=== PATIENT | male | born 1970 | race Caucasian/White ===

== ENCOUNTER → 2024-11-19 | Outpatient (CLI) | payer SELFPAY ==
[2024-11-19 07:09] LABS: Hematocrit 42.9 % (40-54); Hemoglobin 15.4 g/dL (13.0-16.5); Mean Corp Hgb Conc 35.9 g/dL (32-36); Mean Corpuscular Hgb 32.7 pg (27.0-32.0); Mean Corpuscular Volume 91.1 fL (80-94); Mean Platelet Vol. 10.2 fl (6.2-12.0); Platelet Count 238 K/mm3 (150-450); RBC Distribution Width CV 11.5 % (11.6-14.6); RBC Distribution Width SD 38.6 fl (35.1-43.9); Red Blood Count 4.71 M/mm3 (4.6-6.2); White Blood Count 9.6 K/mm3 (4.4-11.0)
[2024-11-19 07:39] LABS: Cholesterol 211 mg/dL (<=200); High Density Lipoprotein 40 mg/dL; Low Density Lipoprotein Calc. 123 mg/dL; Magnesium 1.9 mg/dL (1.5-2.2); Triglycerides 240 mg/dL; Very Low Density Lipoprotein 48 mg/dL (5-40); cholesterol:hdl ratio screen 5.33
[2024-11-19 07:52] LABS: ALB/GLOB Ratio 1.3 RATIO (0.9-2.4); AST(SGOT) 24 U/L (<=37); Alanine Aminotransfer ALT/SGPT 23 U/L (<=46); Alkaline Phosphatase 55 U/L (40-129); Anion Gap 12 (5-15); BUN 19 mg/dL (4-19); BUN/Creat Ratio 21.3 RATIO (10-20); Calcium,Total 9.2 mg/dL (7.6-11.0); Carbon Dioxide 23.7 mmol/L (21.0-32.0); Chloride 100 mmol/L (98-108); Creatinine, Serum 0.87 mg/dL (0.70-1.20); EST Glomerular Filtration Rate 102 (>60); Globulin 3.1 g/dL (2.2-4.2); Glucose 289 mg/dL (70-99); Potassium 4.4 mmol/L (3.3-5.1); Protein, Total 7.1 g/dL (5.9-8.4); Sodium Level 135 mmol/L (133-145); Total Bilirubin 1.34 mg/dL (0.00-1.30)
== END | disposition home or self-care (01) ==
PROVIDERS: PCP Physician Assistant; Referring Provider Internal Medicine Cardiovascular Disease; Visit Provider Internal Medicine Cardiovascular Disease
DX: E11.65 Type 2 diabetes mellitus with hyperglycemia (principal); I10 Essential (primary) hypertension; R06.02 Shortness of breath; R07.9 Chest pain, unspecified; I49.3 Ventricular premature depolarization
CPT/HCPCS: 36415; 80053; 80061; 83735; 84443; 85027

== ENCOUNTER → 2025-01-04 | Outpatient (CLI) | payer SELFPAY ==
--- NOTE | 2025-01-04 12:59 | CT_ITS ---
PROCEDURE: LIMITED CHEST CT CARDIAC ONLY REASON FOR EXAM: CHEST PAIN TECHNIQUE: Supine chest CT without contrast,. One or more dose reduction techniques were used (e.g., Automated exposure control, adjustment of the mA and/or kV according to patient size, use of iterative reconstruction technique). COMPARISON: None FINDINGS: Hardware: None Lymph nodes: Small benign-appearing mediastinal lymph nodes. Calcified right precarinal and right hilar lymph nodes. Heart and Vasculature: Normal heart size. No pericardial effusion. Coronary Artery Calcifications: Present Lungs and Airways: Unremarkable Pleura: Unremarkable Upper Abdomen: Unremarkable Bones: Unremarkable CT/Limited Chest CT Cardiac Only IMPRESSION: Coronary artery calcification (CAC) is is present Reading Location: [id number]
[2025-01-04 13:08] VITALS: PULSE 76; RESP 16; O2SAT 97; BMI 35.5
[2025-01-04 13:34] VITALS: PULSE 73
[2025-01-04 13:34] LABS: CREATININE FINGERSTICK < 1.0 mg/dL (0.70-1.30); EGFR FINGERSTICK > 60.0000 mL/min (>60)
[2025-01-04] MEDS: Nitroglycerin SL (ED/IMG/CATH) 0.4 MG TABLET SL (13:34)
[2025-01-04 13:40] VITALS: BP 140/65; PULSE 78; RESP 18; O2SAT 96
--- NOTE | 2025-01-04 19:01 | CCTA_ITS ---
CCTA w/Cont Coronary Arteries Date of Study:: 01/04/25 Chest pain Coronary Calcium Scoring: High-resolution Computed Tomographic imaging of the chest was performed on [01/04/2025], with particular attention paid to the coronary arteries. Intravenous contrast agent was administered per protocol and images reconstructed and displayed. There was motion artifact present with suboptimal images obtained LEFT MAIN CORONARY ARTERY: This arises from the left coronary cusp and bifurcates to left anterior descending artery and left circumflex artery no high-grade stenosis is present [] LEFT ANTERIOR DESCENDING CORONARY ARTERY: Medium size vessel with a mild to moderate amount of noncalcified atherosclerotic plaque noted in the midsegment and distal mild diffuse disease present [] LEFT CIRCUMFLEX CORONARY ARTERY: Nondominant left circumflex artery with mild soft plaque noted with no high-grade stenosis [] RIGHT CORONARY ARTERY: Proximal dominant large vessel with proximal c alcification midsection motion artifact and distal mild calcification present. No high-grade obvious stenosis is noted [] THORACIC AORTA: [] PULMONARY ARTERY: [] LEFT ATRIUM/APPENDAGE: [] MITRAL VALVE: [] AORTIC VALVE: [] LEFT VENTRICLE: [] CORONARY CALCIUM SCORE: 237 [] Findings Coronary Artery Left Main (LM): 8.19 Left Anterior Descending (LAD): 0 Left Circumflex (LCX): 0 Right Coronary Artery (RCA): 229 Total Agatston Score: 237.19 Percentile Rankinth and 90th percentile Calcium Scoring Interpretation: Different methods to categorize the overall amount of coronary plaque. Overall amount CAC SIS Visual of coronary plaque P1 Mild -100 <2 1-2 vessels with mild amount of plaque P2 Moderate 101-300 3-4 1-2 vessels with moderate amount, 3 vessels with mild amount of plaque P3 Severe 301-999 5-7 3 vessels with moderate amount, 1 vessel with severe amount of plaque P4 Extensive >1000 >8 2-3 vessels with severe amount of plaque Calcium Score: Moderate: 1-2 vessels w/moderate amt, 3 vessels w/mild amt of plaque Conclusion: One-vessel coronary disease with a moderate amount of calcified plaque and mild plaque noted in the left anterior descending artery.
== END | disposition home or self-care (01) ==
PROVIDERS: PCP Physician Assistant; Referring Provider Internal Medicine Cardiovascular Disease; Visit Provider Internal Medicine Cardiovascular Disease
DX: R07.9 Chest pain, unspecified (principal)
CPT/HCPCS: 75571; 75574; 76380; Q9967